=== PATIENT | male | born 1945 | race Caucasian/White ===

== ENCOUNTER 2019-08-14 17:15 | Emergency (ER) | payer MEDICARE, BC ==
--- NOTE | 2019-08-14 17:36 | EDM.PDOC ---
ED HPI GENERAL MEDICAL PROBLEM - General Chief Complaint: Laceration Stated Complaint: cut to hand Time Seen by Provider: 08/14/19 17:25 Source of Information: Reports: Patient History Limitations: Reports: No Limitations - History of Present Illness INITIAL COMMENTS - FREE TEXT/NARRATIVE: Patient comes into the emergency department complaining of a right hand laceration. Patient states that he was fishing and was sitting on a rock when he tried to stand up his hand slid across a rock and ended up poking into another rock. Patient denies any numbness or tingling or decrease in range of motion of the right hand. He states that the bleeding was minimal and was able to be controlled with manual pressure prior to arrival. Patient is concerned it may need stitches or glue and wanted further evaluation. Patient denies any other injury or concerns today. Patient denies any COVID-19 symptoms Onset: Sudden Location: Reports: Upper Extremity, Right Quality: Reports: Other Severity: Mild Improves with: Reports: None Worsens with: Reports: None Associated Symptoms: Reports: No Other Symptoms Right Hand Pain Score (Numeric/FACES): 1 - Related Data Allergies Allergy/AdvReac Type Severity Reaction Status Date / Time dust mite Allergy Other Uncoded 12/18/18 08:29 Home Meds: Home Meds Cetirizine [ZyrTEC] 10 mg PO DAILY 11/20/18 [History] Fluticasone Propionate [Flonase] 1 spray NS BID 11/20/18 [History] Past Medical History HEENT History: Reports: Allergic Rhinitis, Cataract Cardiovascular History: Reports: Other (See Below) Other Cardiovascular History: simple chronic bronchitis Genitourinary History: Reports: None Other Musculoskeletal History: chronic shoulder pain Neurological History: Reports: None Psychiatric History: Reports: None Endocrine/Metabolic History: Reports: None Hematologic History: Reports: None Immunologic History: Reports: None Oncologic (Cancer) History: Reports: Basal Cell Carcinoma Dermatologic History: Reports: None - Past Surgical History HEENT Surgical History: Reports: Cataract Surgery GI Surgical History: Reports: Hernia Repair/Other Musculoskeletal Surgical History: Reports: None ED ROS GENERAL - Review of Systems Review Of Systems: Comprehensive ROS is negative, except as noted in HPI. Constitutional: Reports: No Symptoms Respiratory: Reports: No Symptoms Cardiovascular: Reports: No Symptoms Endocrine: Reports: No Symptoms GI/Abdominal: Reports: No Symptoms : Reports: No Symptoms Musculoskeletal: Reports: No Symptoms Neurological: Reports: No Symptoms Psychiatric: Reports: No Symptoms Hematologic/Lymphatic: Reports: No Symptoms ED EXAM, SKIN/RASH Exam: See Below Exam Limited By: No Limitations General Appearance: Alert, WD/WN, No Apparent Distress Head: Atraumatic, Normocephalic Neck: Normal Inspection, Supple, Non-Tender, Full Range of Motion Respiratory/Chest: No Respiratory Distress, No Accessory Muscle Use, Chest Non- Tender Cardiovascular: Normal Peripheral Pulses, Regular Rate, Rhythm, No Edema Peripheral Pulses: 4+: Radial (L), Radial (R) Neurological: Alert, Oriented, CN II-XII Intact, Normal Cognition, Normal Gait Psychiatric: Normal Affect, Normal Mood Skin: Wound/Incision (abrasion is superficial approximate 0.5cm diameter with puncture woundon the proximal portion of the wound- deepest portion pin size through epidermis. on the posterior distal hand) Location, Skin: Upper Extremity, Right ED SKIN PROCEDURES - Laceration/Wound Repair Left Posterior Hand Appearance: Superficial, Irregular Distal NVT: Neuro & Vascular Intact, No Tendon Injury Skin Prep: Chlorhexidine (Hibiciens), Saline Closed with: Dermabond, Steri-Strips Lac/Wound length In cm: 0.5 Sterile Dressing Applied: Nurse Complications: No Course - Vital Signs Last Recorded V/S: Last Vital Signs Temp 36.1 C 08/14/19 17:18 Pulse 62 08/14/19 17:18 Resp 18 08/14/19 17:18 BP 112/71 08/14/19 17:18 Pulse Ox 95 08/14/19 17:18 Departure - Departure Time of Disposition: 15:35 Disposition: Home, Self-Care 01 Condition: Good Clinical Impression: Broken skin Abrasion hand Qualifiers: Encounter type: initial encounter Laterality: right Qualified Code(s): S60.511A - Abrasion of right hand, initial encounter - Discharge Information *PRESCRIPTION DRUG MONITORING PROGRAM REVIEWED*: Not Applicable *COPY OF PRESCRIPTION DRUG MONITORING REPORT IN PATIENT RUBEN: Not Applicable Instructions: Puncture Wound, [id number], Sutures, Sean, or Adhesive Wound Closure, [id number] Additional Instructions: 1. Rest 2. Keep the area clean and dry 3. Can use tylenol and ibuprofen as needed for pain and discomfort 4. Diet as tolerated 5. Activity as tolerated 6. Elevated the injured area above the level of the heart to decrease swelling and discomfort if applicable 7. Can use ice 3-4 times a day at 20-minute intervals to help with any swelling and discomfort 8. Follow-up with your primary care provider symptoms continue or to progress 9. Discharge information has been provided regarding your injury and wound care has been provided 10. Avoid an public pools or hot tubes until wound is healed. Sepsis Event Note (ED) - Evaluation Sepsis Screening Result: No Definite Risk - Focused Exam Vital Signs: Vital Signs Temp Pulse Resp BP Pulse Ox 08/14/19 17:18 36.1 C 62 18 112/71 95 - Assessment/Plan Assessment:: 1. hand wound Plan: 1. Wound cleansing completed 2. Durabond and steri strips applied 3. Tdap vaccine history completed- per nursing 4. Education regarding wound care, dressing changes, OTC medications, activity, diet, follow up care and when to seek care if warranted provided 5. Patient is to return to the clinic in 10 days to have sutures site evaluated and removed 6. Patient was encouraged to call or return if any questions or concerns arise.
== END 2019-08-14 17:46 | disposition home or self-care (01) ==
LOC: VM.ED 17:15
DX: S61.432A Puncture wound without foreign body of left hand, initial encounter (principal); Z91.048 Other nonmedicinal substance allergy status; W45.8XXA Other foreign body or object entering through skin, initial encounter
CPT/HCPCS: 12001; 99282-25; 99283-GF

== ENCOUNTER 2020-01-18 12:43 | Observation (INO) | payer MEDICARE, BC ==
[2020-01-18] MEDS ORDERED: Morphine 4 MG/ML Syringe IVPUSH ONE (13:07)
[2020-01-18] MEDS ORDERED: Iopamidol 612 MG/ML 100 ML Bottle IVPUSH ONE (13:16)
[2020-01-18 13:30] LABS: ANION GAP 12.1 mmol/L (10-20); CHLORIDE,CL 105 mmol/L (98-107); SODIUM,NA 141 mmol/L (136-145)
[2020-01-18] MEDS ORDERED: Morphine 4 MG/ML Syringe ONE (13:39)
[2020-01-18 14:19] LABS: PTT,PARTIAL THROMBOPLSTIN TIME 25.6 SEC (25.6-32.8)
--- NOTE | 2020-01-18 14:49 | CT ---
[id number] CT/CT Chest Abdomen Pelvis W IV EXAM: CHEST ABDOMEN AND PELVIS CT WITH CONTRAST INDICATION: FELL 5 FEET, RIGHT-SIDED CHEST/ABDOMINAL/PELVIS PAIN. COMPARISON: None. DISCUSSION: Right fourth fifth and sixth rib fractures with a small associated pneumothorax. Contusion of the right gluteal region. Mild splenomegaly. There are scattered cysts in the liver and left kidney largest in the left kidney 33 mm and in the liver 21 mm. Small sliding type hiatus hernia. Scattered diverticula throughout the colon without evidence of diverticulitis. Small fat-containing bilateral inguinal hernias. No pleural or pericardial effusion. Normal heart size. No thoracic adenopathy. Pancreas, adrenal glands, gallbladder and small bowel are normal in appearance. No free air free fluid in the abdomen or pelvis. Results called at time dictation. IMPRESSION: 1. Right fourth through seventh rib fractures with minimal right pneumothorax. 2. Right gluteal contusion. Husam Willoughby MD 01/18/20 [id number] Thank you for allowing us to participate in the care of your patient.
--- NOTE | 2020-01-18 15:47 | EDM.PDOC ---
ED HPI GENERAL MEDICAL PROBLEM - General Chief Complaint: Upper Extremity Injury/Pain Stated Complaint: FELL OFF TRACTOR-CHEST PAIN Time Seen by Provider: 01/18/20 12:43 Source of Information: Reports: Patient History Limitations: Reports: No Limitations - History of Present Illness INITIAL COMMENTS - FREE TEXT/NARRATIVE: Pt. presents to ER after falling approx. Onset: Today Right Chest Pain Score (Numeric/FACES): 8 - Related Data Allergies Allergy/AdvReac Type Severity Reaction Status Date / Time dust mite Allergy Other Uncoded 01/18/20 13:24 Home Meds: Home Meds Aspirin 325 mg PO ASDIRECTED PRN 01/18/20 [History] Past Medical History HEENT History: Reports: Allergic Rhinitis, Cataract Cardiovascular History: Reports: Other (See Below) Other Cardiovascular History: simple chronic bronchitis Genitourinary History: Reports: None Other Musculoskeletal History: chronic shoulder pain Neurological History: Reports: None Psychiatric History: Reports: None Endocrine/Metabolic History: Reports: None Hematologic History: Reports: None Immunologic History: Reports: None Oncologic (Cancer) History: Reports: Basal Cell Carcinoma Dermatologic History: Reports: None - Past Surgical History HEENT Surgical History: Reports: Cataract Surgery GI Surgical History: Reports: Hernia Repair/Other Musculoskeletal Surgical History: Reports: None Social & Family History - Tobacco Use Tobacco Use Status *Q: Never Tobacco User Review of Systems - Review of Systems Review Of Systems: See Below Constitutional: Reports: No Symptoms Eyes: Reports: No Symptoms Ears: Reports: No Symptoms Nose: Reports: No Symptoms Mouth/Throat: Reports: No Symptoms Respiratory: Reports: No Symptoms Cardiovascular: Reports: Chest Pain GI/Abdominal: Reports: Abdominal Pain Genitourinary: Reports: No Symptoms Musculoskeletal: Reports: Other (R hip/pelvis pain) Skin: Reports: No Symptoms Neurological: Reports: No Symptoms Psychiatric: Reports: No Symptoms ED EXAM, GENERAL - Physical Exam Exam: See Below Exam Limited By: No Limitations General Appearance: Alert, WD/WN, No Apparent Distress Eye Exam: Bilateral Eye: EOMI Head: Atraumatic, Normocephalic Neck: Normal Inspection, Supple, Non-Tender, Full Range of Motion Respiratory/Chest: No Respiratory Distress, Lungs Clear, Normal Breath Sounds, No Accessory Muscle Use, Other (R lateral/posterior chest wall discomfort) Cardiovascular: Normal Peripheral Pulses, Regular Rate, Rhythm, No Edema, No JVD, No Murmur Peripheral Pulses: 4+: Radial (L) GI/Abdominal: Soft, Tender (Tender in R lateral abd/pelvis) (Male) Exam: Deferred Rectal (Males) Exam: Deferred Back Exam: Normal Inspection, Full Range of Motion Extremities: Normal Inspection, Normal Range of Motion, Non-Tender, No Pedal Edema, Normal Capillary Refill Neurological: Alert, Oriented, CN II-XII Intact, Normal Cognition, Normal Gait, Normal Reflexes, No Motor/Sensory Deficits Psychiatric: Normal Affect, Normal Mood Skin Exam: Warm, Dry, Intact, Normal Color, No Rash Lymphatic: No Adenopathy Course - Vital Signs Last Recorded V/S: Last Vital Signs Temp 35.9 C L 01/18/20 12:43 Pulse 70 01/18/20 14:15 Resp 12 01/18/20 14:15 BP 123/69 01/18/20 14:15 Pulse Ox 98 01/18/20 14:15 - Orders/Labs/Meds Labs: Laboratory Tests 01/18/20 01/18/20 01/18/20 Range/Units 13:04 13:04 13:04 WBC 11.4 H (4.0-10.0) x10^3/uL RBC 4.22 L (4.5-6.0) x10^6/uL Hgb 13.6 L (14.0-18.0) g/dL Hct 39.6 L (40.0-52.0) % MCV 93.8 H (78.0-93.0) fL MCH 32.2 H (26.0-32.0) pg MCHC 34.3 (32.0-36.0) g/dL RDW Coeff of Baldemar 12.6 (10.0-15.0) % Plt Count 196 (130-400) x10^3/uL Add Manual Diff Yes Neutrophils % (Manual) 59 (50-80) % Band Neutrophils % 1 (0-6) % Lymphocytes % (Manual) 28 (25-50) % Atypical Lymphs % 2 H (0) % Monocytes % (Manual) 7 (2-11) % Eosinophils % (Manual) 3 (0-4) % Platelet Estimate Adequate PT 11.0 (9.5-12.3) SEC INR 1.0 L (2.0-3.5) APTT 25.6 (25.6-32.8) SEC Sodium 141 (136-145) mmol/L Potassium 4.1 (3.5-5.1) mmol/L Chloride 105 (98-107) mmol/L Carbon Dioxide 28 (21-32) mmol/L Anion Gap 12.1 (10-20) mmol/L BUN 15 (7-18) mg/dL Creatinine 1.2 (0.70-1.30) mg/dL Est Cr Clr Drug Dosing TNP Estimated GFR (MDRD) 59 Glucose 120 H (74-106) mg/dL Calcium 8.7 (8.5-10.1) mg/dL Corrected Calcium 8.78 (8.5-10.1) mg/dL Total Bilirubin 0.6 (0.2-1.0) mg/dL AST 30 (15-37) U/L ALT 40 (16-63) U/L Alkaline Phosphatase 77 (46-116) U/L Total Protein 7.0 (6.4-8.2) g/dL Albumin 3.9 (3.4-5.0) g/dL Globulin 3.1 Albumin/Globulin Ratio 1.26 Meds: Medications Discontinued Medications Generic Name Dose Route Start Last Admin Trade Name Freq PRN Reason Stop Dose Admin Iopamidol 100 ml 01/18/20 13:16 01/18/20 13:40 Isovue-300 (61%) IVPUSH 01/18/20 13:17 100 ml ONETIME ONE Administration Morphine Sulfate 4 mg 01/18/20 13:07 01/18/20 13:30 Morphine IVPUSH 01/18/20 13:08 4 mg ONETIME ONE Administration Morphine Sulfate Confirm 01/18/20 13:39 Morphine Administered 01/18/20 13:40 Dose 4 mg .ROUTE .STK-MED ONE Departure - Departure Time of Disposition: 15:30 Disposition: Refer to Observation Clinical Impression: Ribs, multiple fractures, Pneumothorax, COVID-19 - Discharge Information Sepsis Event Note (ED) - Evaluation Sepsis Screening Result: No Definite Risk - Focused Exam Vital Signs: Vital Signs Temp Pulse Resp BP Pulse Ox 01/18/20 14:15 70 12 123/69 98 01/18/20 12:43 35.9 C L 58 L 22 H 134/90 97 - Problem List Review Problem List Initiated/Reviewed/Updated: Yes - Assessment/Plan Plan: Pt. will be admitted observation. He has 4 fractured ribs and a minor pneumothorax. No other acute chest, abdominal or pelvic injury noted. Pt. will be admitted observation. He is a code 1. He did test positive for covid 19 but is largely asymptomatic. Will continue norco for pain control, morphine for breakthrough pain. Repeat chest radiographs in AM. Anticipate discharge tomorrow AM.
[2020-01-18] MEDS ORDERED: Acetaminophen/HYDROcodone 325-10 MG Tab PO PRN (16:09)
[2020-01-18] MEDS ORDERED: Morphine 4 MG/ML Syringe IVPUSH PRN (16:10)
[2020-01-18] MEDS: Docusate Sodium 100 MG Cap PO SCH (17:29)
[2020-01-18] MEDS: Cyclobenzaprine 10 MG Tab PO PRN (17:29)
[2020-01-18] MEDS ORDERED: Famotidine 20 MG Tab PO PRN (22:58)
[2020-01-19] MEDS: Docusate Sodium 100 MG Cap PO SCH (08:47)
[2020-01-19] MEDS: Cyclobenzaprine 10 MG Tab PO PRN (08:47)
[2020-01-19] MEDS ORDERED: Aspirin 325 MG Tab.EC PO PRN (08:56)
--- NOTE | 2020-01-19 10:51 | CR ---
[id number] RAD/RAD Chest PA or AP 1V EXAM: RAD Chest PA or AP 1V INDICATION: PNEUMOTHORAX MONITORING - FALL FROM TRACTOR. COMPARISON: None. DISCUSSION: Cardiomediastinal silhouette is normal in size and contour. No infiltrate, effusion, pneumothorax, or edema. IMPRESSION: No acute cardiopulmonary abnormality. Logan Paige DO 01/19/20 1050 Thank you for allowing us to participate in the care of your patient.
--- NOTE | 2020-01-19 11:33 | PCM.DCSUM1 ---
Discharge Summary - Hospital Course Free Text/Narrative:: Pt. is doing well this AM. He is sitting up watching TV in a chair. He denies any shortness of breath. He has been doing incentive spirometry consistently and is up to 1750 ml. He has been up walking in his room and independently uses to toilet. Pain has been well controlled with [place] 10/325mg. He has also been prescribed flexeril 10mg three times a day for muscle spasm. It does not appear that he has required any IV morphine for breakthrough pain. Since admission, pt. tested positive for covid 19, but he denies having any cough, shortness of breath, congestion, or other covid symptoms. Repeat chest radiograph this AM shows no obvious pneumothorax, pulmonary contusion, or other new pathology. Diagnosis: Stroke: No - Discharge Data Discharge Date: 01/19/20 Discharge Disposition: Home, Self-Care 01 Condition: Good - Referral to Home Health Primary Care Physician: Hoang Fenton MD - Discharge Diagnosis/Problem(s) (1) COVID-19 SNOMED Code(s): 503605166 ICD Code: U07.1 - COVID-19 Status: Acute Current Visit: Yes (2) Pneumothorax SNOMED Code(s): 51265315 ICD Code: J93.9 - PNEUMOTHORAX, UNSPECIFIED Status: Acute Current Visit: Yes - Patient Instructions Diet: Usual Diet as Tolerated, Drink 8-10+ Glasses/Day Activity: No Lifting Over 10 Pounds, Rest and Relax Today Driving: Do Not Drive Showering/Bathing: May Shower - Discharge Plan *PRESCRIPTION DRUG MONITORING PROGRAM REVIEWED*: Yes *COPY OF PRESCRIPTION DRUG MONITORING REPORT IN PATIENT RUBEN: No Prescriptions/Med Rec: Cyclobenzaprine [Flexeril] 10 mg PO TID PRN #30 tablet PRN Reason: Pain Acetaminophen/HYDROcodone [[place] 325-10 MG] 1 tab PO Q4H PRN #30 tablet PRN Reason: Pain (Moderate 4-6) Home Medications: Home Meds Acetaminophen/HYDROcodone [[place] 325-10 MG] 1 tab PO Q4H PRN #30 tablet 01/19/20 [Rx] Aspirin [Ecotrin EC] 325 mg PO ASDIRECTED PRN tab.ec 01/19/20 [Rx] Cyclobenzaprine [Flexeril] 10 mg PO TID PRN #30 tablet 01/19/20 [Rx] Oxygen Therapy Mode: Room Air Forms: ED Department Discharge Referrals: Hoang Fenton MD [Primary Care Provider] - - Discharge Summary/Plan Comment DC Time >30 min.: Yes Discharge Summary/Plan Comment: Pt. will be discharged on [place] 10/325mg and flexeril 10mg three times daily for pain/spasm. Continue stool softener. Increase intake of fluids. Referral for [facility] trauma service within the next 2 weeks with repeat radiographs. Continue incentive spirometry. Advised to work on deep breathing and to walk around his home as much as possible. - General Info Date of Service: 01/19/20 Functional Status: Reports: Pain Controlled, Tolerating Diet, Ambulating, Urinating, Incentive Spirometry Numeric/FACES Score: 3 - Review of Systems General: Reports: No Symptoms HEENT: Reports: No Symptoms Pulmonary: Reports: Other (R sided chest wall pain.). Denies: Shortness of Breath Cardiovascular: Reports: No Symptoms Gastrointestinal: Reports: No Symptoms Genitourinary: Reports: No Symptoms Musculoskeletal: Reports: No Symptoms Skin: Reports: No Symptoms Neurological: Reports: No Symptoms Psychiatric: Reports: No Symptoms - Patient Data Vitals - Most Recent: Last Vital Signs Temp 36.4 C 01/19/20 10:00 Pulse 65 01/19/20 10:00 Resp 16 01/19/20 10:00 BP 110/59 L 01/19/20 10:00 Pulse Ox 95 01/19/20 10:00 Weight - Most Recent: 95.254 kg I&O - Last 24 hours: Intake & Output 01/18/20 01/19/20 01/19/20 22:59 06:59 14:59 Intake Total 120 200 Balance 120 200 Lab Results - Last 24 hrs: Laboratory Results - last 24 hr 01/18/20 01/18/20 01/18/20 Range/Units 13:04 13:04 13:04 WBC 11.4 H (4.0-10.0) x10^3/uL RBC 4.22 L (4.5-6.0) x10^6/uL Hgb 13.6 L (14.0-18.0) g/dL Hct 39.6 L (40.0-52.0) % MCV 93.8 H (78.0-93.0) fL MCH 32.2 H (26.0-32.0) pg MCHC 34.3 (32.0-36.0) g/dL RDW Coeff of Baldemar 12.6 (10.0-15.0) % Plt Count 196 (130-400) x10^3/uL Add Manual Diff Yes Neutrophils % (Manual) 59 (50-80) % Band Neutrophils % 1 (0-6) % Lymphocytes % (Manual) 28 (25-50) % Atypical Lymphs % 2 H (0) % Monocytes % (Manual) 7 (2-11) % Eosinophils % (Manual) 3 (0-4) % Platelet Estimate Adequate PT 11.0 (9.5-12.3) SEC INR 1.0 L (2.0-3.5) APTT 25.6 (25.6-32.8) SEC Sodium 141 (136-145) mmol/L Potassium 4.1 (3.5-5.1) mmol/L Chloride 105 (98-107) mmol/L Carbon Dioxide 28 (21-32) mmol/L Anion Gap 12.1 (10-20) mmol/L BUN 15 (7-18) mg/dL Creatinine 1.2 (0.70-1.30) mg/dL Est Cr Clr Drug Dosing TNP Estimated GFR (MDRD) 59 Glucose 120 H (74-106) mg/dL Calcium 8.7 (8.5-10.1) mg/dL Corrected Calcium 8.78 (8.5-10.1) mg/dL Total Bilirubin 0.6 (0.2-1.0) mg/dL AST 30 (15-37) U/L ALT 40 (16-63) U/L Alkaline Phosphatase 77 (46-116) U/L Total Protein 7.0 (6.4-8.2) g/dL Albumin 3.9 (3.4-5.0) g/dL Globulin 3.1 Albumin/Globulin Ratio 1.26 SARS CoV-2 RNA Rapid KIRAN (NEGATIVE) 01/18/20 Range/Units 15:10 WBC (4.0-10.0) x10^3/uL RBC (4.5-6.0) x10^6/uL Hgb (14.0-18.0) g/dL Hct (40.0-52.0) % MCV (78.0-93.0) fL MCH (26.0-32.0) pg MCHC (32.0-36.0) g/dL RDW Coeff of Baldemar (10.0-15.0) % Plt Count (130-400) x10^3/uL Add Manual Diff Neutrophils % (Manual) (50-80) % Band Neutrophils % (0-6) % Lymphocytes % (Manual) (25-50) % Atypical Lymphs % (0) % Monocytes % (Manual) (2-11) % Eosinophils % (Manual) (0-4) % Platelet Estimate PT (9.5-12.3) SEC INR (2.0-3.5) APTT (25.6-32.8) SEC Sodium (136-145) mmol/L Potassium (3.5-5.1) mmol/L Chloride (98-107) mmol/L Carbon Dioxide (21-32) mmol/L Anion Gap (10-20) mmol/L BUN (7-18) mg/dL Creatinine (0.70-1.30) mg/dL Est Cr Clr Drug Dosing Estimated GFR (MDRD) Glucose (74-106) mg/dL Calcium (8.5-10.1) mg/dL Corrected Calcium (8.5-10.1) mg/dL Total Bilirubin (0.2-1.0) mg/dL AST (15-37) U/L ALT (16-63) U/L Alkaline Phosphatase (46-116) U/L Total Protein (6.4-8.2) g/dL Albumin (3.4-5.0) g/dL Globulin Albumin/Globulin Ratio SARS CoV-2 RNA Rapid KIRAN Positive H (NEGATIVE) Med Orders - Current: Current Medications Hydrocodone Bitart/Acetaminophen ([place] 325-10 Mg) 1 tab PO Q4H PRN PRN Reason: Pain (moderate 4-6) Last Admin: 01/18/20 21:42 Dose: 1 tab Documented by: Aspirin (Ecotrin) 325 mg PO ASDIRECTED PRN PRN Reason: Pain Cyclobenzaprine HCl (Flexeril) 10 mg PO TID PRN PRN Reason: Pain Last Admin: 01/19/20 08:47 Dose: 10 mg Documented by: Docusate Sodium (Colace) 100 mg PO DAILY EMELIA Last Admin: 01/19/20 08:47 Dose: 100 mg Documented by: Famotidine (Pepcid) 20 mg PO BEDTIME PRN PRN Reason: Heartburn Last Admin: 01/18/20 23:30 Dose: 20 mg Documented by: Morphine Sulfate (Morphine) 4 mg IVPUSH Q2H PRN PRN Reason: Pain (severe 7-10) Discontinued Medications Iopamidol (Isovue-300 (61%)) 100 ml IVPUSH ONETIME ONE Stop: 01/18/20 13:17 Last Admin: 01/18/20 13:40 Dose: 100 ml Documented by: Morphine Sulfate (Morphine) 4 mg IVPUSH ONETIME ONE Stop: 01/18/20 13:08 Last Admin: 01/18/20 13:30 Dose: 4 mg Documented by: Morphine Sulfate (Morphine) Confirm Administered Dose 4 mg .ROUTE .STK-MED ONE Stop: 01/18/20 13:40 Last Admin: 01/18/20 16:31 Dose: Not Given Documented by: - Exam General: Reports: Alert, Oriented, Cooperative, No Acute Distress Lungs: Reports: Clear to Auscultation, Normal Respiratory Effort Cardiovascular: Reports: Regular Rate, Regular Rhythm Extremities: Normal Inspection, Normal Range of Motion, No Pedal Edema Skin: Reports: Warm, Dry Neurological: Reports: No New Focal Deficit Psy/Mental Status: Reports: Alert, Normal Affect, Normal Mood
== END 2020-01-19 12:45 | disposition home or self-care (01) ==
LOC: VM.ED 12:43 → VM.MS 15:06
PROVIDERS: ADMIT Physician Assistant; ATTEND Physician Assistant
DX: J93.9 Pneumothorax, unspecified (principal); U07.1 COVID-19; S22.49XA Multiple fractures of ribs, unspecified side, initial encounter for closed fracture; Z79.899 Other long term (current) drug therapy; Z79.82 Long term (current) use of aspirin
CPT/HCPCS: 36415; 71045; 71260; 74177; 80053; 85025; 85610; 85730; 96374; 99217; 99220; 99285-25; A9270-GY; G0378; J2270; Q9967; U0002

== ENCOUNTER 2020-01-24 00:06 | Emergency (ER) | payer MEDICARE, BC ==
[2020-01-24] MEDS ORDERED: Ketorolac 30 MG/ML SDV IM ONE (00:19)
--- NOTE | 2020-01-24 00:29 | EDM.PDOC ---
ED HPI GENERAL MEDICAL PROBLEM - General Chief Complaint: General Time Seen by Provider: 01/24/20 00:11 Source of Information: Reports: Patient, Family - History of Present Illness INITIAL COMMENTS - FREE TEXT/NARRATIVE: Aren is a 74 y/o male who comes to the ER with increased pain in his right upper chest region when he coughs. He was here on 01/18/2020 after falling about 5 feet from his tractor. He was seen here and diagnosed with multiple rib fractures on the right side and a right gluteal contusion. He spent the night in the hospital and was then discharged the next day with pain meds and muscle relaxers. He has an upcoming Trauma follow up appt with [facility] in [place] on Saturday. Tonight he was sitting playing card and reported that he felt a "snap" in his right upper chest when he was coughing. He has been coughing more mucous up also since the incident. He was also diagnosed with +COVID while he was here on Saturday night, but he has been doing fine. He has only been using the [place]. Right Chest Pain Score (Numeric/FACES): 2 - Related Data Allergies Allergy/AdvReac Type Severity Reaction Status Date / Time dust mite Allergy Other Uncoded 01/24/20 00:07 Home Meds: Home Meds Acetaminophen/HYDROcodone [[place] 325-10 MG] 1 tab PO Q4H PRN #30 tablet 01/19/20 [Rx] Aspirin [Ecotrin EC] 325 mg PO ASDIRECTED PRN tab.ec 01/19/20 [Rx] Cyclobenzaprine [Flexeril] 10 mg PO TID PRN #30 tablet 01/19/20 [Rx] Past Medical History HEENT History: Reports: Allergic Rhinitis, Cataract Cardiovascular History: Reports: Other (See Below) Other Cardiovascular History: simple chronic bronchitis Genitourinary History: Reports: None Other Musculoskeletal History: chronic shoulder pain Neurological History: Reports: None Psychiatric History: Reports: None Endocrine/Metabolic History: Reports: None Hematologic History: Reports: None Immunologic History: Reports: None Oncologic (Cancer) History: Reports: Basal Cell Carcinoma Dermatologic History: Reports: None - Infectious Disease History Infectious Disease History: Reports: Novel Coronavirus - Past Surgical History HEENT Surgical History: Reports: Cataract Surgery GI Surgical History: Reports: Hernia Repair/Other Musculoskeletal Surgical History: Reports: None Social & Family History - Family History Family Medical History: No Pertinent Family History - Tobacco Use Tobacco Use Status *Q: Never Tobacco User ED ROS GENERAL - Review of Systems Review Of Systems: See Below Constitutional: Reports: No Symptoms HEENT: Reports: No Symptoms Respiratory: Reports: Cough, Sputum Cardiovascular: Reports: Chest Pain (right upper chest with coughing) Endocrine: Reports: No Symptoms GI/Abdominal: Reports: No Symptoms : Reports: No Symptoms Musculoskeletal: Reports: Muscle Pain (right lateral rib region), Other Skin: Reports: No Symptoms Neurological: Reports: No Symptoms Psychiatric: Reports: No Symptoms Hematologic/Lymphatic: Reports: No Symptoms Immunologic: Reports: No Symptoms ED EXAM, GENERAL - Physical Exam Exam: See Below General Appearance: Alert, WD/WN, No Apparent Distress (Elderly male) Eye Exam: Bilateral Eye: PERRL Ears: Hearing Grossly Normal Nose: Normal Inspection Throat/Mouth: Normal Inspection, Normal Teeth Head: Atraumatic, Normocephalic Neck: Normal Inspection, Supple Respiratory/Chest: No Respiratory Distress, Lungs Clear, Normal Breath Sounds, Other (+tenderness in the right upper chest region, no brusing noted) Cardiovascular: Normal Peripheral Pulses, Regular Rate, Rhythm GI/Abdominal: Normal Bowel Sounds, Soft, Non-Tender (Male) Exam: Deferred Rectal (Males) Exam: Deferred Back Exam: Other (note bruising to right lower flank/gluteal region) Extremities: Normal Inspection, Normal Range of Motion, Normal Capillary Refill Neurological: Alert, Oriented, CN II-XII Intact, Normal Cognition Psychiatric: Normal Affect, Normal Mood Skin Exam: Warm, Dry, Intact, Normal Color Course - Vital Signs Text/Narrative:: 0012 The patient was seen by the SENIOR SUPPLY CHAIN ANALYST. CXR was ordered. He was given Toradol 30mg IM x 1 for pain. Residential Sales Executive was noted to normal. Also given Albuterol inhaler 2 puffs to help with the cough 0105 Xray reviewed, no new fractures noted. Patient reported feeling better. Discharge instructions were given and he left the ER in stable condition. Last Recorded V/S: Last Vital Signs Temp 36.2 C 01/24/20 00:08 Pulse 60 01/24/20 00:08 Resp 16 01/24/20 00:08 BP 125/90 01/24/20 00:08 Pulse Ox 95 01/24/20 00:08 - Orders/Labs/Meds Orders: Active Orders 24 hr Category Date Time Status Chest 2V [CR] Stat Exams 01/24/20 00:18 Ordered Albuterol [Take Home: Albuterol 18 GM, 1 INH Pack] Med 01/24/20 00:35 Ordered 1 packet INH Q4H PRN Medication Orders Albuterol (Take Home: Albuterol 18 Gm, 1 Inh Pack) 1 packet INH Q4H PRN PRN Reason: Shortness of Breath Last Admin: 01/24/20 00:54 Dose: 2 puff Documented by: VICKIE Meds: Medications Generic Name Dose Route Start Last Admin Trade Name Freq PRN Reason Stop Dose Admin Albuterol 1 packet 01/24/20 00:35 01/24/20 00:54 Take Home: Albuterol 18 Gm, 1 Inh Pack INH 2 puff Q4H PRN Administration Shortness of Breath Discontinued Medications Generic Name Dose Route Start Last Admin Trade Name Freq PRN Reason Stop Dose Admin Ketorolac Tromethamine 30 mg 01/24/20 00:19 01/24/20 00:45 Toradol IM 01/24/20 00:20 30 mg ONETIME ONE Administration Departure - Departure Time of Disposition: 01:08 Disposition: Home, Self-Care 01 Condition: Good Clinical Impression: Acute pain due to injury, Multiple rib fractures, COVID-19 - Discharge Information Instructions: Albuterol inhalation aerosol, Acute Pain, Adult, Rib Fracture, [id number] Referrals: PCP,None [Primary Care Provider] - Forms: ED Department Discharge Additional Instructions: -Continue using the Hydrocodone/APAP and Cyclobenzaprine that were prescribed when sent home from hospital -Albuterol HFA inhaler 2 puffs every 4 hours as needed for cough (ER) -Continue the incentive spirometry every hour while awake. This will help lessen the pain when you do cough and help prevent pneumonia. -Continue your COVID quarantine for a complete 10 days -Use ice or heat as needed to the painful rib region -Keep your follow up appt at [facility] as scheduled -Return to the ER for any concerns Sepsis Event Note (ED) - Evaluation Sepsis Screening Result: No Definite Risk - Focused Exam Vital Signs: Vital Signs Temp Pulse Resp BP Pulse Ox 01/24/20 00:08 36.2 C 60 16 125/90 95 - My Orders Last 24 Hours: My Active Orders 01/24/20 00:18 Chest 2V [CR] Stat 01/24/20 00:35 Albuterol [Take Home: Albuterol 18 GM, 1 INH Pack] 1 packet INH Q4H PRN - Assessment/Plan Last 24 Hours: My Active Orders 01/24/20 00:18 Chest 2V [CR] Stat 01/24/20 00:35 Albuterol [Take Home: Albuterol 18 GM, 1 INH Pack] 1 packet INH Q4H PRN
[2020-01-24] MEDS ORDERED: Take Home: Albuterol 18 GM Inhaler, 1 Inhaler Pack INH PRN (00:35)
--- NOTE | 2020-01-24 08:56 | CR ---
[id number] RAD/RAD Chest PA And Lateral EXAM: FRONTAL AND LATERAL CHEST INDICATION: CHEST PAIN COMPARISON: January 19, 2020. DISCUSSION: Right fourth, fifth and sixth rib fractures have not appreciably changed in alignment. There is slight pleural thickening along the area fractures. No residual or recurrent pneumothorax is identified. Mild atelectasis left lung base. Normal heart size. IMPRESSION: 1. Unchanged acute right lateral rib fractures. No acute findings. Husam Willoughby MD 01/24/20 0855 Thank you for allowing us to participate in the care of your patient.
== END 2020-01-24 01:10 | disposition home or self-care (01) ==
LOC: VM.ED 00:06
DX: U07.1 COVID-19 (principal); S22.41XA Multiple fractures of ribs, right side, initial encounter for closed fracture; Z91.09 Other allergy status, other than to drugs and biological substances; W17.89XA Other fall from one level to another, initial encounter
CPT/HCPCS: 71046; 96372; 99283; A9270; J1885; 99284

== ENCOUNTER 2020-07-28 23:06 | Observation (INO) | payer MEDICARE, BC ==
--- NOTE | 2020-07-28 23:36 | EDM.PDOC ---
ED HPI GENERAL MEDICAL PROBLEM - General Chief Complaint: Head Injury Stated Complaint: syncope Time Seen by Provider: 07/28/20 23:10 Source of Information: Reports: EMS, Family History Limitations: Reports: Altered Mental Status - History of Present Illness INITIAL COMMENTS - FREE TEXT/NARRATIVE: Aren is a 74 year old male who presents to ER per EMS after a syncopal episode at home. unsure if "passed out and fell or if fell and then passed out". Has a history of falls, last one in January. She states he had been in the bedroom and then she heard him hit the floor in the living room. Was breathing and had a pulse but was unresponsive so called 911. On EMS arrival, patient was up walking and met them at the door. Is disoriented, unable to recall any events of the incidence. states he was outside watering and "doing his usual things he does outside" today. Admits did have a "drink of water here and there but mostly drinks coffee". Did eat supper this evening. Had no complaints at that time. Patient denies chest pain. No shortness of breath. States has mild left thumb discomfort. Unable to state day of the week. Is oriented to person and place. Blood sugar per EMS was 79. Blood pressure stable. Onset: Today, Sudden Duration: Minutes:, Improving Location: Reports: Head, Generalized Associated Symptoms: Reports: Confusion, Syncope. Denies: Chest Pain, Cough, Diaphoresis, Fever/Chills, Headaches, Loss of Appetite, Nausea/Vomiting, S hortness of Breath Treatments FUSE COILER: Reports: EKG, IV/IO Left Finger-Thumb Pain Score (Numeric/FACES): 2 - Related Data Allergies Allergy/AdvReac Type Severity Reaction Status Date / Time dust mite Allergy Other Uncoded 01/24/20 00:07 Home Meds: Home Meds Acetaminophen/HYDROcodone [[place] 325-10 MG] 1 tab PO Q4H PRN #30 tablet 01/19/20 [Rx] Aspirin [Ecotrin EC] 325 mg PO ASDIRECTED PRN tab.ec 01/19/20 [Rx] Cyclobenzaprine [Flexeril] 10 mg PO TID PRN #30 tablet 01/19/20 [Rx] Past Medical History HEENT History: Reports: Allergic Rhinitis, Cataract Cardiovascular History: Reports: Other (See Below) Other Cardiovascular History: simple chronic bronchitis Genitourinary History: Reports: None Other Musculoskeletal History: chronic shoulder pain Neurological History: Reports: None Psychiatric History: Reports: None Endocrine/Metabolic History: Reports: None Hematologic History: Reports: None Immunologic History: Reports: None Oncologic (Cancer) History: Reports: Basal Cell Carcinoma Dermatologic History: Reports: None - Infectious Disease History Infectious Disease History: Reports: Novel Coronavirus - Past Surgical History HEENT Surgical History: Reports: Cataract Surgery GI Surgical History: Reports: Hernia Repair/Other Musculoskeletal Surgical History: Reports: None Social & Family History - Family History Family Medical History: No Pertinent Family History - Tobacco Use Tobacco Use Status *Q: Unknown Ever Used Tobacco ED ROS GENERAL - Review of Systems Review Of Systems: See Below Constitutional: Reports: Malaise, Weakness. Denies: Fever, Chills HEENT: Denies: Ear Pain, Sinus Problem, Throat Pain, Vertigo, Vision Change Respiratory: Denies: Shortness of Breath, Cough Cardiovascular: Denies: Chest Pain Endocrine: Denies: Fatigue GI/Abdominal: Denies: Abdominal Pain, Diarrhea, Nausea, Vomiting : Reports: No Symptoms Musculoskeletal: Reports: Joint Pain Skin: Reports: Wound Neurological: Reports: Syncope, Weakness ED EXAM, HEAD INJURY - Physical Exam Exam: See Below Exam Limited By: Altered Mental Status General Appearance: Alert, WD/WN, No Apparent Distress Head: Normocephalic, Scalp Abrasions Nexus Criteria: No: Posterior, Midline Cervical Tenderness, Evidence of Intoxication, Altered Level of Consciousness, Focal Neurological Deficit, Painful Distraction Injuries Eyes: Bilateral Eye: EOMI, PERRL Ears: Normal External Exam, Normal TMs Nose: Normal Inspection, Normal Mucousa, No Blood Throat/Mouth: Normal Inspection, Normal Oropharynx Neck: Non-Tender, Full Range of Motion Respiratory: No Respiratory Distress, Lungs Clear, Normal Breath Sounds Cardiovascular: Regular Rate, Rhythm GI/Abdominal Exam: Normal Bowel Sounds, Soft, Non-Tender Extremities: Normal Inspection, No Pedal Edema Neurologic: pit shovel operator II-XII nml As Tested, No Motor/Sensory Deficits, Alert, Other (oriented to person and place) Skin: Normal Color, Warm/Dry, Other (abrasion/bruising to right forehead) - Justine Coma Score Best Eye Response (Justine): (4) Open Spontaneously Best Verbal Response (Justine): (4) Confused Conversation Best Motor Response (Craig): (6) Obeys Commands Course - Vital Signs Last Recorded V/S: Last Vital Signs Temp 98.2 F 07/28/20 23:10 Pulse 62 07/28/20 23:10 Resp 16 07/28/20 23:10 BP 119/58 L 07/28/20 23:10 Pulse Ox 96 07/28/20 23:10 - Orders/Labs/Meds Orders: Active Orders 24 hr Category Date Time Status EKG 12 Lead [EKG Documentation Completion] [RC] STAT Care 07/28/20 23:19 Active Chest 2V [CR] Stat Exams 07/28/20 23:19 Taken Head wo Cont [CT] Stat Exams 07/28/20 23:18 Taken BLOOD SMEARS TO PATHOLOGIST [REF] Stat Lab 07/28/20 23:41 Received MISC TEST Routine Lab 07/28/20 23:41 Received Labs: Laboratory Tests 07/28/20 07/28/20 07/29/20 Range/Units 23:41 23:41 00:20 WBC 8.9 (4.0-10.0) x10^3/uL RBC 3.82 L (4.5-6.0) x10^6/uL Hgb 12.6 L (14.0-18.0) g/dL Hct 35.7 L (40.0-52.0) % MCV 93.5 H (78.0-93.0) fL MCH 33.0 H (26.0-32.0) pg MCHC 35.3 (32.0-36.0) g/dL RDW Coeff of Baldemar 13.0 (10.0-15.0) % Plt Count 146 (130-400) x10^3/uL Add Manual Diff Yes Neutrophils % (Manual) 29 L (50-80) % Lymphocytes % (Manual) 23 L (25-50) % Atypical Lymphs % 39 H (0) % Monocytes % (Manual) 8 (2-11) % Eosinophils % (Manual) 1 (0-4) % Smudge Cells Many H Platelet Estimate Adequate Rouleaux 1+ slight H Sodium 143 (136-145) mmol/L Potassium 3.6 (3.5-5.1) mmol/L Chloride 107 (98-107) mmol/L Carbon Dioxide 25 (21-32) mmol/L Anion Gap 14.6 (5-15) mmol/L BUN 20 H (7-18) mg/dL Creatinine 1.1 (0.70-1.30) mg/dL Est Cr Clr Drug Dosing 63.69 mL/min Estimated GFR (MDRD) > 60 Glucose 99 (70-99) mg/dL Calcium 7.9 L (8.5-10.1) mg/dL Corrected Calcium 8.4 L (8.5-10.1) mg/dL Total Bilirubin 0.5 (0.2-1.0) mg/dL AST 25 (15-37) U/L ALT 35 (16-63) U/L Alkaline Phosphatase 70 (46-116) U/L Troponin I High Sens 7 (<=76) ng/L C-Reactive Protein < 0.2 (<=0.9) mg/dL Total Protein 6.3 L (6.4-8.2) g/dL Albumin 3.4 (3.4-5.0) g/dL Globulin 2.9 Albumin/Globulin Ratio 1.17 Urine Color Dark yellow H (YELLOW) Urine Appearance Clear (CLEAR) Urine pH 5.5 (5.0-8.0) Ur Specific [place] >=1.030 Urine Protein Negative (NEGATIVE) mg/dL Urine Glucose (UA) Negative (NEGATIVE) mg/dL Urine Ketones Negative (NEGATIVE) mg/dL Urine Occult Blood Negative (NEGATIVE) Urine Nitrite Negative (NEGATIVE) Urine Bilirubin Negative (NEGATIVE) Urine Urobilinogen 0.2 (0.2) EU/dL Ur Leukocyte Esterase Negative (NEGATIVE) Slides for Path Review Yes - Re-Assessments/Exams Free Text/Narrative Re-Assessment/Exam: 07/29/20 00:15 Is visiting with . Resting. Oriented x3 now, able to converse easily. GCS 15. Patient recalls being in the bedroom, reaching for his shorts in the closet and then the arrival of the ambulance at his house. Denies any headache, lightheadedness, nausea. Labs essentially unremarkable. BUN is mildly elevated. 07/29/20 00:46 CT scan and chest xray are negative. Urine shows specific gravity of greater than 1.030. Will admit for observation, telemetry, neuro checks and IV fluids as possible syncopal episode due to dehydration. Departure - Departure Time of Disposition: 00:47 Disposition: Refer to Observation Condition: Fair Clinical Impression: Syncope - Discharge Information *PRESCRIPTION DRUG MONITORING PROGRAM REVIEWED*: No *COPY OF PRESCRIPTION DRUG MONITORING REPORT IN PATIENT RUBEN: No Forms: ED Department Discharge Sepsis Event Note (ED) - Evaluation Sepsis Screening Result: No Definite Risk - Focused Exam Vital Signs: Vital Signs Temp Pulse Resp BP Pulse Ox 07/28/20 23:10 98.2 F 62 16 119/58 L 96 - Problem List & Annotations (1) Syncope SNOMED Code(s): 202370496 Code(s): R55 - SYNCOPE AND COLLAPSE Status: Acute Priority: High Qualifiers: Encounter type: initial encounter - Problem List Review Problem List Initiated/Reviewed/Updated: Yes - My Orders Last 24 Hours: My Active Orders 07/28/20 23:18 Head wo Cont [CT] Stat 07/28/20 23:19 EKG 12 Lead [EKG Documentation Completion] [RC] STAT Chest 2V [CR] Stat 07/28/20 23:41 BLOOD SMEARS TO PATHOLOGIST [REF] Stat MISC TEST Routine - Assessment/Plan Admission H&P: Please use this note as an admission H&P Last 24 Hours: My Active Orders 07/28/20 23:18 Head wo Cont [CT] Stat 07/28/20 23:19 EKG 12 Lead [EKG Documentation Completion] [RC] STAT Chest 2V [CR] Stat 07/28/20 23:41 BLOOD SMEARS TO PATHOLOGIST [REF] Stat MISC TEST Routine Assessment:: Syncope Plan: Refer to observation. IV fluids. quality assurance monitor final and neuro checks. Reevaluate in am.
[2020-07-29 00:08] LABS: CHLORIDE,CL 107 mmol/L (98-107); SODIUM,NA 143 mmol/L (136-145)
[2020-07-29 00:09] LABS: ANION GAP 14.6 mmol/L (5-15)
[2020-07-29] MEDS ORDERED: Acetaminophen 325 MG Tab PO PRN (01:04)
[2020-07-29] MEDS ORDERED: Sodium Chloride 0.9% 10 ML Syringe FLUSH PRN (01:04)
[2020-07-29] MEDS ORDERED: Ondansetron 4 MG Tab.DIS PO PRN (01:04)
[2020-07-29] MEDS: Sodium Chloride 0.9% 1,000 ML IV SCH ×2 (01:38→11:22)
[2020-07-29 07:33] LABS: ANION GAP 7.7 mmol/L (5-15); CHLORIDE,CL 110 mmol/L (98-107); SODIUM,NA 143 mmol/L (136-145)
--- NOTE | 2020-07-29 07:34 | CT ---
[id number] CT/CT Head WO IV EXAM: CT Head WO IV CLINICAL DATA: HYPOTENSION COMPARISON: No previous similar exam is available for comparison. FINDINGS: There is no mass or mass effect. There is no hemorrhage or hydrocephalus. There are no extra-axial fluid collections. There are no sites of abnormal attenuation. IMPRESSION: NO PLAIN CT EVIDENCE OF ACUTE INTRACRANIAL PROCESS. Alin Peres MD 07/29/20 0733 Thank you for allowing us to participate in the care of your patient.
--- NOTE | 2020-07-29 07:37 | CR ---
[id number] RAD/RAD Chest PA And Lateral EXAM: RAD Chest PA And Lateral CLINICAL DATA: HYPOTENSION COMPARISON: CORRELATION IS MADE WITH JANUARY 24, 2020 FINDINGS: The lungs are clear. The cardiomediastinal contour is moderately enlarged. The regional bones and soft tissues are unremarkable. IMPRESSION: NO ACUTE PROCESS. Alin Peres MD 07/29/20 0735 Thank you for allowing us to participate in the care of your patient.
--- NOTE | 2020-07-29 13:35 | PCM.DCSUM1 ---
Discharge Summary - Hospital Course Free Text/Narrative:: Aren is a 74 year old male who presents to ER per EMS after a syncopal episode at home. unsure if "passed out and fell or if fell and then passed out". Has a history of falls, last one in January. She states he had been in the bedroom and then she heard him hit the floor in the living room. Was breathing and had a pulse but was unresponsive so called 911. On EMS arrival, patient was up walking and met them at the door. Is disoriented, unable to recall any events of the incidence. states he was outside watering and "doing his usual things he does outside" today. Admits did have a "drink of water here and there but mostly drinks coffee". Did eat supper this evening. Had no complaints at that time. Patient denies chest pain. No shortness of breath. States has mild left thumb discomfort. Unable to state day of the week. Is o riented to person and place. Blood sugar per EMS was 79. Vital signs stable on arrival. Was disoriented to place and history on arrival but did clear more over course of ER stay and was answering questions appropriately. No recall of incident of fall, remembered that he was getting shorts out of his closet and then recalls EMS arrival. Work up in the ER with CT scan of head, chest xray and labs done. Negative CT and chest xray. CBC does show many smudge cells, WBC remains normal. Mildly low calcium. Urine did show high specific gravity. Admitted for syncope/dehydration and neuro checks. IV fluids infusing. Diagnosis: Stroke: No Modified Anne-Marie Scale: No Symptoms at All Modified Anne-Marie Scale Score: 0 - Discharge Data Discharge Date: 07/29/20 Discharge Disposition: Home, Self-Care 01 Condition: Good - Referral to Home Health Primary Care Physician: PCP None - Discharge Diagnosis/Problem(s) (1) Syncope SNOMED Code(s): 499802355 ICD Code: R55 - SYNCOPE AND COLLAPSE Status: Acute Priority: High Current Visit: Yes Qualifiers: Encounter type: initial encounter - Patient Summary/Data Complications: none Hospital Course: Patient is doing well today. Denies headache. Admits to "feeling restless,would like to go home". Up and ambulated in the moreira, did well without any symptoms. Has been eating well. No chest pain, shortness of breath, nausea/vomiting. Telemetry shows SR with 1st degree AV block. Neuro checks have remained normal. Will discharge home. Will need potential carotid ultrasound, echocardiogram. Peripheral smear done, results to his primary. See Dr. Morris next week. - Patient Instructions Diet: Usual Diet as Tolerated Activity: As Tolerated - Discharge Plan *PRESCRIPTION DRUG MONITORING PROGRAM REVIEWED*: No *COPY OF PRESCRIPTION DRUG MONITORING REPORT IN PATIENT RUBEN: No Forms: ED Department Discharge Referrals: Rachel Morris MD [Physician] - (Follow up with Dr. Morris next week) - Discharge Summary/Plan Comment DC Time >30 min.: No - General Info Date of Service: 07/29/20 Admission Dx/Problem (Free Text: Syncope Functional Status: Reports: Pain Controlled, Tolerating Diet, Ambulating - Review of Systems General: Denies: Fever, Weakness, Fatigue, Malaise HEENT: Denies: Ear Pain, Headaches, Sinus Congestion, Rhinitis, Visual Changes Pulmonary: Denies: Shortness of Breath, Cough Cardiovascular: Denies: Chest Pain, Edema, Lightheadedness Gastrointestinal: Denies: Abdominal Pain, Nausea, Vomiting Genitourinary: Reports: No Symptoms Musculoskeletal: Reports: Other (thumb stiffness and swelling) Skin: Reports: Other (abrasion to head) Neurological: Denies: Headache, Numbness, Tingling, Weakness Psychiatric: Reports: No Symptoms - Patient Data Vitals - Most Recent: Last Vital Signs Temp 98 F 07/29/20 10:33 Pulse 58 L 07/29/20 10:33 Resp 16 07/29/20 10:33 BP 130/60 07/29/20 10:33 Pulse Ox 95 07/29/20 10:33 Weight - Most Recent: 209 lb 3.499 oz I&O - Last 24 hours: Intake & Output 07/28/20 07/29/20 07/29/20 22:59 06:59 14:59 Intake Total 435 Output Total 850 Balance -415 Lab Results - Last 24 hrs: Laboratory Results - last 24 hr 07/28/20 07/28/20 07/29/20 Range/Units 23:41 23:41 00:20 WBC 8.9 (4.0-10.0) x10^3/uL RBC 3.82 L (4.5-6.0) x10^6/uL Hgb 12.6 L (14.0-18.0) g/dL Hct 35.7 L (40.0-52.0) % MCV 93.5 H (78.0-93.0) fL MCH 33.0 H (26.0-32.0) pg MCHC 35.3 (32.0-36.0) g/dL RDW Coeff of Baldemar 13.0 (10.0-15.0) % Plt Count 146 (130-400) x10^3/uL Neut % (Auto) (50.0-80.0) % Lymph % (Auto) (25.0-50.0) % Mobile % (Auto) (2.0-11.0) % Eos % (Auto) (0.0-4.0) % Baso % (Auto) (0.2-1.2) % Add Manual Diff Yes Neutrophils % (Manual) 29 L (50-80) % Lymphocytes % (Manual) 23 L (25-50) % Atypical Lymphs % 39 H (0) % Monocytes % (Manual) 8 (2-11) % Eosinophils % (Manual) 1 (0-4) % Smudge Cells Many H Platelet Estimate Adequate Rouleaux 1+ slight H Sodium 143 (136-145) mmol/L Potassium 3.6 (3.5-5.1) mmol/L Chloride 107 (98-107) mmol/L Carbon Dioxide 25 (21-32) mmol/L Anion Gap 14.6 (5-15) mmol/L BUN 20 H (7-18) mg/dL Creatinine 1.1 (0.70-1.30) mg/dL Est Cr Clr Drug Dosing 63.69 mL/min Estimated GFR (MDRD) > 60 Glucose 99 (70-99) mg/dL Calcium 7.9 L (8.5-10.1) mg/dL Corrected Calcium 8.4 L (8.5-10.1) mg/dL Total Bilirubin 0.5 (0.2-1.0) mg/dL AST 25 (15-37) U/L ALT 35 (16-63) U/L Alkaline Phosphatase 70 (46-116) U/L Troponin I High Sens 7 (<=76) ng/L C-Reactive Protein < 0.2 (<=0.9) mg/dL Total Protein 6.3 L (6.4-8.2) g/dL Albumin 3.4 (3.4-5.0) g/dL Globulin 2.9 Albumin/Globulin Ratio 1.17 Urine Color Dark yellow H (YELLOW) Urine Appearance Clear (CLEAR) Urine pH 5.5 (5.0-8.0) Ur Specific [place] >=1.030 Urine Protein Negative (NEGATIVE) mg/dL Urine Glucose (UA) Negative (NEGATIVE) mg/dL Urine Ketones Negative (NEGATIVE) mg/dL Urine Occult Blood Negative (NEGATIVE) Urine Nitrite Negative (NEGATIVE) Urine Bilirubin Negative (NEGATIVE) Urine Urobilinogen 0.2 (0.2) EU/dL Ur Leukocyte Esterase Negative (NEGATIVE) SARS CoV-2 RNA Rapid IKRAN (NEGATIVE) Slides for Path Review Yes 07/29/20 07/29/20 07/29/20 Range/Units 00:57 06:25 06:25 WBC 9.8 (4.0-10.0) x10^3/uL RBC 3.75 L (4.5-6.0) x10^6/uL Hgb 12.2 L (14.0-18.0) g/dL Hct 34.8 L (40.0-52.0) % MCV 92.8 (78.0-93.0) fL MCH 32.5 H (26.0-32.0) pg MCHC 35.1 (32.0-36.0) g/dL RDW Coeff of Baldemar 12.8 (10.0-15.0) % Plt Count 158 (130-400) x10^3/uL Neut % (Auto) 29.1 L (50.0-80.0) % Lymph % (Auto) 60.0 H (25.0-50.0) % Mobile % (Auto) 7.7 (2.0-11.0) % Eos % (Auto) 3.0 (0.0-4.0) % Baso % (Auto) 0.2 (0.2-1.2) % Add Manual Diff Neutrophils % (Manual) (50-80) % Lymphocytes % (Manual) (25-50) % Atypical Lymphs % (0) % Monocytes % (Manual) (2-11) % Eosinophils % (Manual) (0-4) % Smudge Cells Platelet Estimate Rouleaux Sodium 143 (136-145) mmol/L Potassium 3.7 (3.5-5.1) mmol/L Chloride 110 H (98-107) mmol/L Carbon Dioxide 29 (21-32) mmol/L Anion Gap 7.7 (5-15) mmol/L BUN 17 (7-18) mg/dL Creatinine 0.9 (0.70-1.30) mg/dL Est Cr Clr Drug Dosing 77.84 mL/min Estimated GFR (MDRD) > 60 Glucose 103 H (70-99) mg/dL Calcium 7.8 L (8.5-10.1) mg/dL Corrected Calcium 8.5 (8.5-10.1) mg/dL Total Bilirubin 0.4 (0.2-1.0) mg/dL AST 22 (15-37) U/L ALT 30 (16-63) U/L Alkaline Phosphatase 66 (46-116) U/L Troponin I High Sens (<=76) ng/L C-Reactive Protein < 0.2 (<=0.9) mg/dL Total Protein 5.9 L (6.4-8.2) g/dL Albumin 3.1 L (3.4-5.0) g/dL Globulin 2.8 Albumin/Globulin Ratio 1.11 Urine Color (YELLOW) Urine Appearance (CLEAR) Urine pH (5.0-8.0) Ur Specific [place] Urine Protein (NEGATIVE) mg/dL Urine Glucose (UA) (NEGATIVE) mg/dL Urine Ketones (NEGATIVE) mg/dL Urine Occult Blood (NEGATIVE) Urine Nitrite (NEGATIVE) Urine Bilirubin (NEGATIVE) Urine Urobilinogen (0.2) EU/dL Ur Leukocyte Esterase (NEGATIVE) SARS CoV-2 RNA Rapid KIRAN Negative (NEGATIVE) Slides for Path Review Med Orders - Current: Current Medications Acetaminophen (Acetaminophen 325 Mg Tab) 650 mg PO Q4H PRN PRN Reason: Pain (Mild 1-3)/fever Last Admin: 07/29/20 01:36 Dose: 650 mg Documented by: Sodium Chloride (Normal Saline) 1,000 mls @ 100 mls/hr IV ASDIRECTED [facility] Last Admin: 07/29/20 11:22 Dose: 100 mls/hr Documented by: Ondansetron HCl (Ondansetron 4 Mg Tab.Dis) 4 mg PO Q4H PRN PRN Reason: nausea, able to take PO Sodium Chloride (Sodium Chloride 0.9% 10 Ml Syringe) 10 ml FLUSH ASDIRECTED PRN PRN Reason: Keep Vein Open - Exam General: Reports: Alert, Oriented HEENT: Reports: Mucous Membr. Moist/[place]: Reports: Supple Lungs: Reports: Clear to Auscultation, Normal Respiratory Effort Cardiovascular: Reports: Regular Rate, Regular Rhythm GI/Abdominal Exam: Normal Bowel Sounds, Soft, Non-Tender Extremities: Normal Inspection, No Pedal Edema Skin: Reports: Warm, Dry Neurological: Reports: No New Focal Deficit
--- NOTE | 2020-07-29 18:53 | PCM.EKG ---
#1 Interpretation EKG Date: 07/28/20 Rhythm: NSR Terral: Normal P-Wave: Present QRS: Normal ST-T: Normal Comparison: No Change
== END 2020-07-29 13:10 | disposition home or self-care (01) ==
LOC: VM.ED 23:06 → VM.MS 07-29 00:48 → UNDOADMOB 07-29 00:59 → VM.MS 07-29 01:04 → UNDOADMOB 07-29 01:04
PROVIDERS: ADMIT Physician Assistant Medical; ATTEND Physician Assistant Medical
DX: R55 Syncope and collapse (principal); Z91.09 Other allergy status, other than to drugs and biological substances; Z79.899 Other long term (current) drug therapy; Z79.82 Long term (current) use of aspirin; Z98.890 Other specified postprocedural states; Z20.822 Contact with and (suspected) exposure to COVID-19
CPT/HCPCS: 36415; 70450; 71046; 80053; 81003; 84484; 85008; 85025; 85046; 86140; 93005; 99217; 99220; 99285-25; A9270-GY; G0378; J7030; U0002

== ENCOUNTER 2021-12-29 16:35 | Observation (INO) | payer MEDICARE, BC ==
[2021-12-29] MEDS ORDERED: HYDROmorphone 0.5 MG/0.5 ML Syringe IVPUSH ONE (16:56)
[2021-12-29 17:09] LABS: ANION GAP 14.3 mmol/L (5-15); CHLORIDE,CL 103 mmol/L (98-107); ESTIMATED GFR 78 mL/min (>=60); SODIUM,NA 140 mmol/L (136-145)
[2021-12-29] MEDS ORDERED: Acetaminophen/HYDROcodone 325-5 MG Tab PO PRN (18:56)
[2021-12-29] MEDS ORDERED: Ondansetron 4 MG Tab.DIS PO PRN (18:56)
[2021-12-29] MEDS ORDERED: Ondansetron 4 MG/2 ML SDV IV PRN (18:56)
[2021-12-29] MEDS ORDERED: HYDROmorphone 0.5 MG/0.5 ML Syringe IVPUSH PRN (18:56)
[2021-12-29] MEDS ORDERED: Baclofen 10 MG Tab PO SCH (21:00)
[2021-12-30] MEDS ORDERED: Carbidopa/Levodopa 25-100 MG Tab PO SCH (08:00)
[2021-12-30 08:20] LABS: ANION GAP 11.9 mmol/L (5-15)
== END 2021-12-30 13:24 | disposition home or self-care (01) ==
LOC: VM.ED 16:35 → VM.MS 18:13
PROVIDERS: ADMIT Physician Assistant Medical; ATTEND Physician Assistant Medical
DX: S27.0XXA Traumatic pneumothorax, initial encounter (principal); J42 Unspecified chronic bronchitis; J43.9 Emphysema, unspecified; D72.820 Lymphocytosis (symptomatic); D64.9 Anemia, unspecified; Z98.890 Other specified postprocedural states; Z87.891 Personal history of nicotine dependence; Z79.899 Other long term (current) drug therapy; Z86.16 Personal history of COVID-19
CPT/HCPCS: 36415; 71046; 80053; 82550; 83615; 85025; 86140; 93005; 94760; 96374; 99285-25; A9270-GY; G0378; J1170

== ENCOUNTER 2022-06-28 09:28 | Day surgery (SDC) | payer MEDICARE, BC ==
[~2022-06-28 09:28] MED LIST: Lactated Ringers 1,000 ML IV SCH; Sodium Chloride 0.9% 10 ML Syringe FLUSH PRN
[2022-06-28] MEDS ORDERED: Midazolam 1 MG/ML 2 ML SDV ONE (11:31)
[2022-06-28] MEDS ORDERED: Propofol 200 MG/20 ML SDV ONE (11:31)
[2022-06-28] MEDS ORDERED: fentaNYL 100 MCG/2 ML SDV ONE (11:31)
[2022-06-28] MEDS ORDERED: ePHEDrine 50 MG/ML SDV ONE (11:41)
== END 2022-06-28 13:20 | disposition home or self-care (01) ==
LOC: VM.SDS 09:28
PROVIDERS: ATTEND Family Medicine
DX: Z12.11 Encounter for screening for malignant neoplasm of colon (principal); D12.0 Benign neoplasm of cecum; D12.3 Benign neoplasm of transverse colon; Q43.8 Other specified congenital malformations of intestine; K57.30 Diverticulosis of large intestine without perforation or abscess without bleeding; Z79.899 Other long term (current) drug therapy; Z91.048 Other nonmedicinal substance allergy status; Z98.49 Cataract extraction status, unspecified eye; Z86.010 Personal history of colon polyps
CPT/HCPCS: 00812; 88305; J2250; J2704; J3010; J3490; J7120

== ENCOUNTER 2022-08-17 16:27 | Emergency (ER) | payer MEDICARE, BC | END 2022-08-17 18:01 | disposition home or self-care (01) | LOC: VM.ED 16:27 | DX: S62.306A Unspecified fracture of fifth metacarpal bone, right hand, initial encounter for closed fracture (principal); Z86.16 Personal history of COVID-19; Z91.048 Other nonmedicinal substance allergy status; W19.XXXA Unspecified fall, initial encounter | CPT/HCPCS: 73130-RT; 99283; 99284 ==

== ENCOUNTER 2022-08-24 14:21 | Emergency (ER) | payer MEDICARE, BC ==
[2022-08-24] MEDS ORDERED: Labetalol 20 MG/4 ML Syringe IVPUSH ONE (15:05)
== END 2022-08-24 16:53 | disposition home or self-care (01) ==
LOC: VM.ED 14:21
DX: S00.83XA Contusion of other part of head, initial encounter (principal); S00.03XA Contusion of scalp, initial encounter; S10.93XA Contusion of unspecified part of neck, initial encounter; S80.211A Abrasion, right knee, initial encounter; Z86.16 Personal history of COVID-19; Z91.048 Other nonmedicinal substance allergy status; W18.30XA Fall on same level, unspecified, initial encounter; Y92.009 Unspecified place in unspecified non-institutional (private) residence as the place of occurrence of the external cause
CPT/HCPCS: 70450; 73130-RT; 73562-RT; 99283; 99284

== ENCOUNTER 2022-11-15 23:05 | Emergency (ER) | payer MEDICARE, BC | END 2022-11-15 23:51 | disposition home or self-care (01) | LOC: VM.ED 23:05 | DX: S01.01XA Laceration without foreign body of scalp, initial encounter (principal); S80.01XA Contusion of right knee, initial encounter; R29.6 Repeated falls; Z86.16 Personal history of COVID-19; Z91.048 Other nonmedicinal substance allergy status; Z79.899 Other long term (current) drug therapy; W18.30XA Fall on same level, unspecified, initial encounter | CPT/HCPCS: 12001; 99283 ==